=== PATIENT | female | born 1950 | race Caucasian/White ===

== ENCOUNTER → 2016-09-28 | Outpatient (CLI) | payer MEDICARE ==
[~2016-09-28] MED LIST: ALBU6.7H INH; ANTIDEPRESSANT; ESTR1TAB12 PO; OSEL75 PO; PRED20 PO; PRIN5TAB PO
--- NOTE | 2016-10-27 13:15 | RSPPFT ---
DATE OF PROCEDURE: 09/28/16 COMMENTS: VOLUMES DYNAMIC: FVC and FEV1 mildly reduced. STATIC: VTG and TLC normal; RV mildly increased. FLOWS: FEV1% mildly reduced; FEF 25-75 moderately reduced. DIFFUSION; Normal. FLOW VOLUME LOOP: Terminal airflow obstruction. IMPRESSION: Mild obstructive ventilatory defect with no reduction in diffusion. Mild hyperinflation is present. There is some improvement post-bronchodilator. Airways resistance is increased.
== END ==
LOC: HRSP 09:34
PROVIDERS: ATTEND Internal Medicine
DX: J44.9 Chronic obstructive pulmonary disease, unspecified (principal)
CPT/HCPCS: 94060; 94620; 94726; 94729